=== PATIENT | male | born 1960 | race Caucasian/White ===

== ENCOUNTER 2021-11-04 12:31 | Emergency (ER) | payer MEDICAID ==
[~2021-11-04] VITALS: Ht 177.8 cm; Wt 82.0 kg
[2021-11-04] MEDS ORDERED: KETOROLAC 30MG/ML VIAL IV STA (13:01)
[2021-11-04] MEDS ORDERED: SODIUM CHLORIDE 0.9% 1,000 ML IV ONE (13:15)
[2021-11-04 14:02] LABS: BASOPHILS % 0.9 % (0.0-2.0); EOSINOPHILS % 2.9 % (0.0-5.0); HEMATOCRIT. 35.9 % (42.0-52.0); HEMOGLOBIN. 11.7 g/dL (14.0-18.0); LYMPHOCYTES % 18.4 % (20.0-50.0); MEAN CORPUSCULAR HEMOGLOBIN 30.4 pg (28.0-32.0); MEAN CORPUSCULAR VOLUME 92.9 fL (80.0-94.0); MEAN PLATELET VOLUME 9.4 fl (7.4-10.4); MONOCYTES % 11.5 % (2.0-8.0); NEUTROPHILS % 66.3 % (40.0-76.0); PLATELET 240 x1000/uL (130-400); RED BLOOD CELL COUNT 3.86 mill/uL (4.7-6.1); RED CELL DISTRIBUTION WIDTH 15.3 % (11.6-14.6)
[2021-11-04 14:11] LABS: CHLORIDE 106 mEq/L (98-107)
[2021-11-04 14:36] VITALS: BP 132/84
[2021-11-04] MEDS ORDERED: KETOROLAC 30MG/ML VIAL IV SCH (14:45)
[2021-11-04] MEDS ORDERED: IBUP-2028 MT (16:30)
== END 2021-11-04 16:55 | disposition home or self-care (01) ==
LOC: ER 12:33
DX: R10.12 Left upper quadrant pain (principal); R07.81 Pleurodynia; I10 Essential (primary) hypertension; Y04.0XXA Assault by unarmed brawl or fight, initial encounter; Y93.89 Activity, other specified; Y92.89 Other specified places as the place of occurrence of the external cause
CPT/HCPCS: 36415; 71045; 71260; 74177; 80053; 83690; 83880; 84484; 85025; 93005; 96361; 96374; 99285; J1885; J7030